=== PATIENT | female | born 1995 ===

== ENCOUNTER 2021-08-13 16:27 | Inpatient (IN) | payer MEDICAID ==
[2021-08-13] MEDS ORDERED: Ondansetron 4 MG/2 ML SDV IVPUSH PRN ×2 (17:29→17:47)
[2021-08-13] MEDS ORDERED: Carboprost Tromethamine 250 MCG/1 ML Amp IM PRN (17:29)
[2021-08-13] MEDS ORDERED: Lidocaine 1% 30 ML SDV INJECT PRN (17:29)
[2021-08-13] MEDS ORDERED: Tranexamic Acid 1,000 MG in Sodium Chloride 0.9% 100 ML IV PRN (17:29)
[2021-08-13] MEDS ORDERED: Misoprostol 400 MCG (4 X 100 MCG TAB) RECTAL PRN (17:29)
[2021-08-13] MEDS ORDERED: Lactated Ringers 1,000 ML IV ONE (17:29)
[2021-08-13] MEDS ORDERED: Methylergonovine 0.2 MG/1 ML Amp IM PRN (17:29)
[2021-08-13] MEDS ORDERED: Lactated Ringers 1,000 ML IV SCH (17:30)
[2021-08-13] MEDS ORDERED: Oxytocin/Normal Saline 30 UNIT/500 ML BAG IV SCH (17:30)
[2021-08-13] MEDS ORDERED: ePHEDrine 50 MG/ML SDV IVPUSH PRN (17:47)
[2021-08-13] MEDS ORDERED: Promethazine 25 MG/ML SDV IM PRN (17:47)
[2021-08-13] MEDS ORDERED: Naloxone 2 MG/2 ML Syringe IVPUSH PRN (17:47)
[2021-08-13] MEDS ORDERED: Lactated Ringers 500 ML IV SCH ×2 (18:00)
[2021-08-13] MEDS ORDERED: EPINEPHrine 1 MG/ML SDV ONE (18:05)
[2021-08-13] MEDS ORDERED: fentaNYL 100 MCG/2 ML SDV ONE (18:05)
[2021-08-13] MEDS ORDERED: Simethicone 80 MG Tab.Chew PO PRN (21:16)
[2021-08-13] MEDS ORDERED: Zolpidem 5 MG Tab PO PRN (21:16)
[2021-08-13] MEDS ORDERED: Benzocaine/Menthol 20%-0.5% Spray 78 GM Cannister TOP PRN (21:16)
[2021-08-13] MEDS ORDERED: Oxytocin 10 Units/1 ML SDV IM PRN (21:16)
[2021-08-13] MEDS: Docusate Sodium 100 MG Cap PO PRN (23:17)
[2021-08-13] MEDS: Ibuprofen 800 MG Tab PO PRN (23:17)
[2021-08-14] MEDS: Acetaminophen 325 MG Tab PO PRN ×2 (02:39→12:07)
[2021-08-14] MEDS: Prenatal Multivitamin with Calcium/Folic Acid/Iron Tab PO SCH (08:23)
[2021-08-14] MEDS: Ibuprofen 800 MG Tab PO PRN ×2 (08:23→17:01)
[2021-08-14] MEDS: Docusate Sodium 100 MG Cap PO PRN (08:23)
[2021-08-14] MEDS: Ferrous Sulfate 325 MG Tab PO SCH (08:23)
[2021-08-14] MEDS ORDERED: Measles, Mumps & Rubella Vaccine 0.5 ML SDV SUBCUT ONE (16:22)
[2021-08-15] MEDS: Ibuprofen 800 MG Tab PO PRN (05:48)
[2021-08-15] MEDS: Acetaminophen 325 MG Tab PO PRN (08:04)
[2021-08-15] MEDS: Prenatal Multivitamin with Calcium/Folic Acid/Iron Tab PO SCH (08:04)
[2021-08-15] MEDS: Docusate Sodium 100 MG Cap PO PRN (08:04)
[2021-08-15] MEDS: Ferrous Sulfate 325 MG Tab PO SCH (08:04)
[2021-08-15] MEDS ORDERED: EPINEPHrine 1 MG/ML SDV ONE (12:44)
[2021-08-15] MEDS ORDERED: fentaNYL 100 MCG/2 ML SDV ITHECAL ONE (12:44)
== END 2021-08-15 12:45 | disposition home or self-care (01) | DRG 807 ==
LOC: DL.OBCHECK 16:27 → DL.OB 16:45 → OBSVTOIN 17:29 → DL.OB 17:29
PROVIDERS: ADMIT Family Medicine; ATTEND Family Medicine
PROC: 10E0XZZ Delivery of Products of Conception, External Approach (ICD-10-PCS; principal; 2021-08-13)
PROC: 10907ZC Drainage of Amniotic Fluid, Therapeutic from Products of Conception, Via Natural or Artificial Opening (ICD-10-PCS; 2021-08-13)
PROC: 3E0R3BZ Introduction of Anesthetic Agent into Spinal Canal, Percutaneous Approach (ICD-10-PCS; 2021-08-13)
PROC: 00HU33Z Insertion of Infusion Device into Spinal Canal, Percutaneous Approach (ICD-10-PCS; 2021-08-13)
PROC: 3E0234Z Introduction of Serum, Toxoid and Vaccine into Muscle, Percutaneous Approach (ICD-10-PCS; 2021-08-13)
DX: O69.81X0 Labor and delivery complicated by cord around neck, without compression, not applicable or unspecified (principal); Z37.0 Single live birth; O71.82 Other specified trauma to perineum and vulva; Z20.822 Contact with and (suspected) exposure to COVID-19; Z23 Encounter for immunization; Z3A.39 39 weeks gestation of pregnancy
CPT/HCPCS: 01967; 36415; 51701; 59025; 59409; 85027; 90471; 90707; A9270-GY; J0171; J2405; J2590; J3010; J7120; U0002

== ENCOUNTER 2021-08-16 19:53 | Emergency (ER) | payer MEDICAID | END 2021-08-16 20:25 | disposition left against medical advice (07) | LOC: DL.ED 19:53 | DX: Z53.21 Procedure and treatment not carried out due to patient leaving prior to being seen by health care provider (principal) ==

== ENCOUNTER 2022-02-02 05:23 | Emergency (ER) | payer MEDICAID ==
[2022-02-02] MEDS ORDERED: Sodium Chloride 0.9% 10 ML Syringe FLUSH PRN (05:35)
[2022-02-02 05:37] VITALS: BP 117/75; PULSE 96
[2022-02-02 06:15] LABS: ANION GAP 16.8 mEq/L (7-13)
== END 2022-02-02 07:02 | disposition home or self-care (01) ==
LOC: DL.ED 05:23
DX: U07.1 COVID-19 (principal); Z86.16 Personal history of COVID-19
CPT/HCPCS: 36415; 80053; 81001; 81025; 83605; 83690; 85025; 86140; 87040; 99283; U0002

== ENCOUNTER 2022-10-11 18:19 | Emergency (ER) | payer MEDICAID ==
[2022-10-11] MEDS ORDERED: Tetracaine HCl/PF 0.5% 4 ML Bottle EYELF ONE (18:34)
[2022-10-11] MEDS ORDERED: Fluorescein 1 MG Ophth Strip EYELF ONE (18:35)
[2022-10-11] MEDS ORDERED: Ciprofloxacin 0.3% Ophth Soln 5 ML Bottle ONE (18:51)
== END 2022-10-11 18:58 | disposition home or self-care (01) ==
LOC: DL.ED 18:19
DX: S05.02XA Injury of conjunctiva and corneal abrasion without foreign body, left eye, initial encounter (principal)
CPT/HCPCS: 99283; A9270; 99282; J3490